=== PATIENT | female | born 2000 | race Caucasian/White ===

== ENCOUNTER 2022-11-24 15:35 | Outpatient (CLI) | payer BC, SELFPAY ==
[2022-11-25 21:09] LABS: C.Difficile Negative (Negative); CDIFFEPI 027 PRESUMPTIVE NEGATIVE (Negative)
== END 2022-11-24 15:36 | disposition home or self-care (01) ==
LOC: LKVREF 15:36
PROVIDERS: Visit Provider Physician Assistant
DX: R19.7 Diarrhea, unspecified (principal)
CPT/HCPCS: 87493

== ENCOUNTER 2023-06-20 12:30 | Outpatient (RCR) | payer BC, SELFPAY | END 2023-10-18 23:59 | disposition home or self-care (01) | PROVIDERS: Visit Provider Family Medicine | DX: R20.9 Unspecified disturbances of skin sensation (principal); Z51.89 Encounter for other specified aftercare | CPT/HCPCS: 97165; 97530 ==